=== PATIENT | female | born 1995 | race Caucasian/White ===

== ENCOUNTER 2023-09-16 21:25 | Emergency (ER) | payer OTHER, SELFPAY ==
[2023-09-16 21:31] VITALS: BP 142/86; PULSE 90; RESP 18; TEMP 37.2; O2SAT 97; BMI 34.5
--- NOTE | 2023-09-16 22:25 | ED_ITS ---
HPI - Ear Problem General Chief complaint: Ear Problems Stated complaint: LT ear infection Time Seen by Provider: 09/16/23 21:49 Source: patient Mode of arrival: ambulatory Limitations: no limitations History of Present Illness HPI Narrative: Patient is a 27-year-old female who presents emergency department for evaluation of left ear infection. She states that she was evaluated at urgent care today, advised that she has swimmer's ear she was started on oral antibiotics provided with ear drops. She states that she wanted another opinion, reporting that she has had ongoing ear infection for the past 2 years. She denies fevers, chills, pain behind the ear, muffled hearing, headache, neck pain, neck stiffness, URI symptoms. She has purulent drainage and moisture from the ear. She has only to rule single dosage of her antibiotics thus far. Related Data Allergies Allergy/AdvReac Type Severity Reaction Status Date / Time No Known Allergies Allergy Verified 09/16/23 21:31 [No Known Allergies*] Review of Systems Review of Systems: Yes all other systems are reviewed and are negative PMFSH Past Medical History Attestation statement: The following information was validated with the patient. Source: old records reviewed Social History Social History Advance Directives: No Physical Exam Vital Signs: Vital Signs: Last Vital Signs Temp 98.9 F 09/16/23 21:31 Pulse 90 09/16/23 21:31 Resp 18 09/16/23 21:31 BP 142/86 H 09/16/23 21:31 Pulse Ox 97 09/16/23 21:31 O2 Del Method Room Air 09/16/23 21:31 BMI result Body Mass Index 34.5 Appearance: Alert.?Oriented to person, place and time. No acute distress.?Normal affect. Eyes: Pupils equal, round and reactive to light.? ENT: Pharynx normal.?? TM on the right without erythema or bulging. Left TM Erythematous with bulging, external canal with Otorrhea, no pain on palpation of the tragus, or auricle. no pre or postauricular tenderness or swelling. able to open and close the jaw without difficulty, no tenderness upon palpation of the TMJ. Neck: Normal inspection.? Neck supple.?? CVS: Heart sounds normal. Normal heart rate and rhythm.? Pulses normal.?? Respiratory: No respiratory distress.? Lung sounds clear to auscultation bilaterally?? Abdomen: Soft and non-tender. Normoactive bowel sounds. Skin: Skin warm and dry.? Normal skin color.? Extremities: No lower extremity edema.? Neuro: Moves all extremities spontaneously. Sensation intact bilaterally. CN II- XII intact. No focal neuro deficits. Ambulates with normal steady gait. Medical Decision Making Medical Decision Making MDM Narrative: patient is a 27-year-old female who presents emergency department for evaluation of left ear pain, she was evaluated at urgent care today and provided new prescription for Augmentin and neomycin drops, she has taken a single dosage of these antibiotics thus far. He has been experiencing occasi onal ear infections for the past 2 years, she has been followed by her primary care provider for this, she has yet to see an ENT specialist. Overall she is well-appearing, nontoxic, afebrile. Examination is most consistent with otitis externa, no evidence of mastoiditis, clinical impression is not consistent with malignant otitis externa at this time. Recommended close follow-up with primary care provider given recurrent infections, provided with contact information for Dr. Womack. discussed acetaminophen or ibuprofen for pain management. reviewed worrisome signs and symptoms that warrant re-evaluation emergency department. All questions answered. Stable for discharge. Differential Diagnosis Differential Diagnoses: The differential diagnosis associated with the presentation includes ( As noted above) Tests considered The following testing was considered but not selected: serum labs were considered, history and physical examination, deferred Prescription Management I considered prescription management with: Antibiotic ( previously prescribed) Discharge Plan Discharge Clinical Impression: Otitis externa Patient Disposition: Home, Self-Care Instructions: Otitis Externa (ED) Additional Instructions: Continue taking the antibiotics and ear drops as prescribed from Urgent Care. Please follow-up with your primary care provider. Also been provided with contact information for the your specialist associated with this hospital given you will see ongoing history of recurrent infections. Referrals: Sourav Womack [Physician] - Tomeka Lopez MD [Primary Care Provider] -
== END 2023-09-16 22:36 | disposition home or self-care (01) ==
PROVIDERS: Emergency Provider Student in an Organized Health Care Education/Training Program; PCP Internal Medicine
DX: H92.02 Otalgia, left ear (principal); H66.92 Otitis media, unspecified, left ear
CPT/HCPCS: 99282